=== PATIENT | female | born 1995 | race Two or more races ===

== ENCOUNTER 2020-12-19 15:15 | Inpatient (IN) | payer OTHER ==
[~2020-12-19] VITALS: Ht 170.2 cm; Wt 2.7 kg
[2021-01-03] MEDS ORDERED: PRENATAL TABLE1 EAC1 PO (21:42)
== END 2021-01-07 12:58 | disposition home or self-care (01) | DRG 788 ==
LOC: O/R 01-03 20:14 → LDR 01-03 20:14 → O/R 01-04 19:35 → OB/GYN 01-04 22:13 → LDR 01-10 15:15
PROVIDERS: ADMIT Specialist; ATTEND Specialist
PROC: 4A1HXFZ Monitoring of Products of Conception, Cardiac Rhythm, External Approach (ICD-10-PCS; 2021-01-03)
PROC: 10907ZC Drainage of Amniotic Fluid, Therapeutic from Products of Conception, Via Natural or Artificial Opening (ICD-10-PCS; 2021-01-04)
PROC: 3E033VJ Introduction of Other Hormone into Peripheral Vein, Percutaneous Approach (ICD-10-PCS; 2021-01-04)
PROC: 3E0P7VZ Introduction of Hormone into Female Reproductive, Via Natural or Artificial Opening (ICD-10-PCS; 2021-01-04)
PROC: 10D00Z1 Extraction of Products of Conception, Low, Open Approach (ICD-10-PCS; principal; 2021-01-04 21:00)
DX: O65.9 Obstructed labor due to maternal pelvic abnormality, unspecified (principal); O99.824 Streptococcus B carrier state complicating childbirth; Z3A.39 39 weeks gestation of pregnancy; Z37.0 Single live birth